=== PATIENT | female | born 1940 | race Caucasian/White ===

== ENCOUNTER 2017-10-31 10:45 | Inpatient (IN) | payer OTHER ==
[~2017-10-31] VITALS: Ht 152.4 cm; Wt 52.6 kg
[2017-10-31] MEDS ORDERED: CELEBREX200MG PO (14:13)
[2017-10-31] MEDS ORDERED: OMEPRAZOLE20 M1 PO (14:13)
[2017-10-31] MEDS ORDERED: DICLO GEL1 EACH TP (14:14)
[2017-10-31] MEDS ORDERED: AMBIEN5 MG PO (14:14)
[2017-10-31] MEDS ORDERED: GABAPENTIN100 MG PO (14:14)
[2017-11-03] MEDS ORDERED: COLACE100 MG PO (09:09)
[2017-11-03] MEDS ORDERED: NAPR500T14 PO (09:09)
== END 2017-11-03 12:49 | disposition home or self-care (01) | DRG 734 ==
LOC: OB/GYN 11-02 05:52 → O/R 11-02 05:52 → OB/GYN 11-02 10:45
PROVIDERS: Obstetrics & Gynecology Gynecologic Oncology
PROC: 07TC4ZZ Resection of Pelvis Lymphatic, Percutaneous Endoscopic Approach (ICD-10-PCS; 2017-11-02)
PROC: 0DBW4ZZ Excision of Peritoneum, Percutaneous Endoscopic Approach (ICD-10-PCS; 2017-11-02)
PROC: 0UT74ZZ Resection of Bilateral Fallopian Tubes, Percutaneous Endoscopic Approach (ICD-10-PCS; 2017-11-02)
PROC: 0UT24ZZ Resection of Bilateral Ovaries, Percutaneous Endoscopic Approach (ICD-10-PCS; 2017-11-02)
PROC: 0DBU4ZZ Excision of Omentum, Percutaneous Endoscopic Approach (ICD-10-PCS; 2017-11-02)
PROC: 0TJB8ZZ Inspection of Bladder, Via Natural or Artificial Opening Endoscopic (ICD-10-PCS; 2017-11-02)
PROC: 0UT94ZZ Resection of Uterus, Percutaneous Endoscopic Approach (ICD-10-PCS; principal; 2017-11-02 17:00)
DX: C54.1 Malignant neoplasm of endometrium (principal); C48.1 Malignant neoplasm of specified parts of peritoneum; C52 Malignant neoplasm of vagina

== ENCOUNTER 2019-03-17 10:37 | Emergency (ER) | payer OTHER ==
[~2019-03-17] VITALS: Ht 149.9 cm; Wt 49.9 kg
[~2019-03-17 10:37] MED LIST: AMBIEN5 MG PO; CELEBREX200MG PO; COLACE100 MG PO; DICLO GEL1 EACH TP; GABAPENTIN100 MG PO; NAPR500T14 PO; OMEPRAZOLE20 M1 PO
== END 2019-03-17 11:25 | disposition home or self-care (01) ==
LOC: ER 10:37
DX: R19.09 Other intra-abdominal and pelvic swelling, mass and lump (principal)

== ENCOUNTER 2019-04-08 08:10 | Outpatient (CLI) | payer OTHER | END 2019-04-08 08:23 | disposition home or self-care (01) | LOC: NUCLEAR 08:10 | DX: C54.1 Malignant neoplasm of endometrium (principal) | CPT/HCPCS: 78816; A9552 ==